=== PATIENT | male | born 1995 | race Caucasian/White ===

== ENCOUNTER 2018-08-07 16:53 | Emergency (ER) | payer OTHER ==
[2018-08-07] MEDS ORDERED: NS(*) 0.9% 1000 ML BAG 1,000 ML IV ONE (16:58)
[2018-08-07] MEDS ORDERED: ONDANSETRON 4 MG/2 ML VIAL IVP ONE (17:00)
[2018-08-07] MEDS ORDERED: KETOROLAC 30 MG/ML VIAL IVP ONE (17:00)
[2018-08-07] MEDS ORDERED: VITA1CAP50 PO (17:07)
[2018-08-07] MEDS ORDERED: IOPAMIDOL 76% 75 ML INFUS BTL 75 ML ONE (17:10)
--- NOTE | 2018-08-07 17:13 | ER Report ---
History and Physical Time Seen By MD: 17:07 Hx. of Stated Complaint: Pt. having RLQ pain with vomiting and diarrhea. Pt. sent from [facility] to rule out Appendicitis. HPI/ROS CHIEF COMPLAINT: Right lower quadrant abdominal pain, nausea, vomiting HISTORY OF PRESENT ILLNESS: Patient is a 22-year-old male here [facility] [employer] with complaints of right lower quadrant, periumbilical abdominal pain which started this morning and is associated decreased appetite, nausea, chills, subjective fever. Patient denies prior history of abdominal surgeries. Patient does complain of loose stools however denies hematuria, burning with urination, flank pain, shortness of breath, cough. Patient is afebrile, hemodynamically stable. REVIEW OF SYSTEMS: Constitutional: + subjective fever, + chills. Eyes: No discharge. ENT: No sore throat. Cardiovascular: No chest pain, no palpitations. Respiratory: No cough, no shortness of breath. Gastrointestinal: + right lower and periumbilical abdominal pain, + nausea and vomiting. Genitourinary: No hematuria. Musculoskeletal: No back pain. Skin: No rashes. Neurological: No headache. Allergies: Coded Allergies: No Known Drug Allergies (Unverified , 08/07/18) Home Meds Active Scripts Tramadol Hcl (TRAMADOL HCL) 50 Mg Tablet, 50 MG PO Q6H PRN for PAIN, #10 TAB 0 Refills Prov:ZULEIMA SUAREZ DO 08/07/18 Ondansetron (ZOFRAN ODT) 4 Mg Tab.rapdis, 4 MG PO Q6H PRN for NAUSEA/VOMITING, #20 TAB.LILLIANA 0 Refills Prov:ZULEIMA SUAREZ DO 08/07/18 Reported Medications Vitamin B Complex & Vit C No.3 (B COMPLEX WITH VITAMIN C) 1 Each Capsule, 1 EACH PO DAILY, CAPSULE 08/07/18 Constitutional Vital Sign - Last 24 Hours 08/07/18 08/07/18 08/07/18 08/07/18 16:59 16:59 17:03 17:08 Temp 98.7 Pulse 77 75 86 Resp 16 B/P (MAP) 139/82 (101) 139/82 Pulse Ox 95 95 95 O2 Delivery Room Air 08/07/18 08/07/18 08/07/18 08/07/18 17:13 17:18 17:22 17:23 Pulse 79 75 80 B/P (MAP) 126/86 (99) Pulse Ox 94 96 93 08/07/18 08/07/18 08/07/18 08/07/18 17:38 17:43 17:48 17:53 Pulse 70 63 76 77 Pulse Ox 93 93 94 93 08/07/18 08/07/18 17:58 18:00 Pulse 86 B/P (MAP) 124/67 (86) Pulse Ox 96 Physical Exam General Appearance: The patient is alert, has no immediate need for airway protection and no signs of toxicity. NAD Eyes: Pupils equal and round no pallor or injection. ENT, Mouth: Mucous membranes are moist. Respiratory: There are no retractions, lungs are clear to auscultation. Cardiovascular: Regular rate and rhythm. Gastrointestinal: Abdomen is soft and + tender in the periumbilical and RLQ distribution, no masses, bowel sounds normal. Neurological: No focal neuro deficits Skin: Warm and dry, no rashes. Musculoskeletal: Neck is supple non tender. Extremities are nontender, nonswollen and have full range of motion. DIFFERENTIAL DIAGNOSIS: After history and physical exam differential diagnosis was considered for abdominal pain including but not limited to appendicitis, cholecystitis, gastritis and urinary tract infection. Medical Decision Making Data Points Result Diagram: 08/07/18 1705 08/07/18 1705 Laboratory Hematology Test 08/07/18 17:05 08/07/18 18:25 Red Blood Count 6.58 M/uL (4.00-5.60) Mean Corpuscular Volume 82.4 fL (80.0-96.0) Mean Corpuscular Hemoglobin 29.1 pg (26.0-33.0) Mean Corpuscular Hemoglobin Concent 35.4 g/dL (32.0-36.0) Red Cell Distribution Width 13.0 % (11.5-14.5) Mean Platelet Volume 9.1 fL (7.2-11.1) Neutrophils (%) (Auto) 71.0 % (39.4-72.5) Lymphocytes (%) (Auto) 20.2 % (17.6-49.6) Monocytes (%) (Auto) 7.2 % (4.1-12.4) Eosinophils (%) (Auto) 1.0 % (0.4-6.7) Basophils (%) (Auto) 0.6 % (0.3-1.4) Nucleated RBC Relative Count (auto) 0.1 /100WBC Neutrophils # (Auto) 7.5 K/uL (2.0-7.4) Lymphocytes # (Auto) 2.1 K/uL (1.3-3.6) Monocytes # (Auto) 0.8 K/uL (0.3-1.0) Eosinophils # (Auto) 0.1 K/uL (0.0-0.5) Basophils # (Auto) 0.1 K/uL (0.0-0.1) Nucleated RBC Absolute Count (auto) 0.01 K/uL Sodium Level 143 mmol/L (137-145) Potassium Level 3.6 mmol/L (3.5-5.0) Chloride Level 102 mmol/L (98-107) Carbon Dioxide Level 25 mmol/L (22-30) Blood Urea Nitrogen 12 mg/dl (9-21) Creatinine 0.80 mg/dl (0.66-1.25) Glomerular Filtration Rate Calc > 60.0 Random Glucose 87 mg/dl (75-110) Calcium Level 9.6 mg/dl (8.4-10.2) Total Bilirubin 0.9 mg/dl (0.2-1.3) Aspartate Amino Transf (AST/SGOT) 26 U/L (0-35) Alanine Aminotransferase (ALT/SGPT) 39 U/L (0-56) Alkaline Phosphatase 62 U/L (0-126) C-Reactive Protein < 0.5 mg/dl (<1.0) Total Protein 8.7 g/dl (6.3-8.2) Albumin 4.9 g/dl (3.5-5.0) Lipase 99 U/L (23-300) Chemistry Test 08/07/18 17:05 08/07/18 18:25 White Blood Count 10.5 k/uL (4.5-11.0) Red Blood Count 6.58 M/uL (4.00-5.60) Hemoglobin 19.2 g/dL (14.0-18.0) Hematocrit 54.2 % (42.0-52.0) Mean Corpuscular Volume 82.4 fL (80.0-96.0) Mean Corpuscular Hemoglobin 29.1 pg (26.0-33.0) Mean Corpuscular Hemoglobin Concent 35.4 g/dL (32.0-36.0) Red Cell Distribution Width 13.0 % (11.5-14.5) Platelet Count 256 K/uL (150-450) Mean Platelet Volume 9.1 fL (7.2-11.1) Neutrophils (%) (Auto) 71.0 % (39.4-72.5) Lymphocytes (%) (Auto) 20.2 % (17.6-49.6) Monocytes (%) (Auto) 7.2 % (4.1-12.4) Eosinophils (%) (Auto) 1.0 % (0.4-6.7) Basophils (%) (Auto) 0.6 % (0.3-1.4) Nucleated RBC Relative Count (auto) 0.1 /100WBC Neutrophils # (Auto) 7.5 K/uL (2.0-7.4) Lymphocytes # (Auto) 2.1 K/uL (1.3-3.6) Monocytes # (Auto) 0.8 K/uL (0.3-1.0) Eosinophils # (Auto) 0.1 K/uL (0.0-0.5) Basophils # (Auto) 0.1 K/uL (0.0-0.1) Nucleated RBC Absolute Count (auto) 0.01 K/uL Glomerular Filtration Rate Calc > 60.0 Calcium Level 9.6 mg/dl (8.4-10.2) Total Bilirubin 0.9 mg/dl (0.2-1.3) Aspartate Amino Transf (AST/SGOT) 26 U/L (0-35) Alanine Aminotransferase (ALT/SGPT) 39 U/L (0-56) Alkaline Phosphatase 62 U/L (0-126) C-Reactive Protein < 0.5 mg/dl (<1.0) Total Protein 8.7 g/dl (6.3-8.2) Albumin 4.9 g/dl (3.5-5.0) Lipase 99 U/L (23-300) Urinalysis Test 08/07/18 18:25 EKG/Imaging Imaging COMPUTED TOMOGRAPHY OF THE Abdomen and Pelvis with CONTRAST INDICATION: Right lower quadrant pain x1 day. TECHNIQUE: Contiguous axial 3.[address] images were obtained through the abdomen and pelvis after 75 mL Isovue-370. Coronal and sagittal reformatted images were submitted. COMPARISON: None. FINDINGS: Lung bases: Clear Liver and hepatic vasculature: No focal liver lesion. Gallbladder and bile ducts: Normal Spleen: Normal Pancreas: Normal Adrenals: Normal Kidneys, ureters and bladder: Symmetric enhancement. No hydronephrosis or collecting system obstruction. Normal-appearing bladder. Retroperitoneum and aorta: Normal GI tract, mesentery and peritoneum: Normal appendix. No bowel obstruction. No free fluid or free air. No findings of diverticulitis. Prostate: Unremarkable Bones and soft tissues: No acute osseous abnormality. IMPRESSION: 1. Normal appendix. 2. The source of abdominal pain is not forthcoming. One of the following dose optimization techniques was utilized in the performance of this exam: Automated exposure control; adjustment of the mA and/or kV according to the patient's size; or use of an iterative reconstruction technique. Specific details can be referenced in the facility's radiology CT exam operational policy. ED Course/Re-evaluation ED Course Patient is a 22-year-old male here with complaints of periumbilical and right lower quadrant abdominal pain with associated nausea, chills, vomiting which st arted this morning. Patient was evaluated at [facility] where concern was raised for acute appendicitis prompting emergency department evaluation. Patient does have tenderness on exam of the right lower quadrant of the abdomen without rebound or guarding, fevers or hemodynamic instability. Patient was given IV fluids, Zofran, Toradol for symptom management. CT imaging of the abdomen and pelvis showed no acute intra-abdominal findings. Labs are unremarkable. Patient was given prescription for tramadol and Zofran for outpatient management of symptoms. Decision to Disposition Date: Aug 07, 2018 Decision to Disposition Time: 18:36 Depart Departure Latest Vital Signs Vital Signs Date Time Temp Pulse Resp B/P (MAP) Pulse Ox O2 Delivery O2 Flow Rate FiO2 08/07/18 18:00 124/67 (86) 08/07/18 17:58 86 96 08/07/18 16:59 98.7 16 Room Air Impression: Primary Impression: Abdominal pain Condition: Improved Disposition: HOME OR SELF-CARE New Scripts Tramadol Hcl (TRAMADOL HCL) 50 Mg Tablet 50 MG PO Q6H PRN for PAIN, #10 TAB 0 Refills Prov: ZULEIMA SUAREZ DO 10/25/18 Ondansetron (ZOFRAN ODT) 4 Mg Tab.rapdis 4 MG PO Q6H PRN for NAUSEA/VOMITING, #20 TAB.LILLIANA 0 Refills Prov: ZULEIMA SUAREZ DO 08/07/18 Patient Instructions: Abdominal Pain (ED) Additional Instructions: You may take 1 tablet of Zofran every 6-8 hours as needed for nausea and vomiting. You may take 1 tablet of tramadol every 6-8 hours as needed for pain control. Please follow-up with your family doctor in the next one week or return promptly if you develop fevers, worsening pain, inability to tolerate oral intake. ZULEIMA SUAREZ DO Aug 07, 2018 17:13
[2018-08-07 17:32] LABS: PLATELET COUNT, AUTOMATED 256 K/uL (150-450)
[2018-08-07] MEDS ORDERED: TRAM-420 PO (17:48)
[2018-08-07] MEDS ORDERED: ONDA4TAB PO (17:48)
--- NOTE | 2018-08-07 18:15 | RADIOLOGY IMAGING REPORT ---
FACILITY: [facility] PATIENT NAME: Corbin Ferreira : 1995 MR: [id number] V: [id number] EXAM DATE: [id number] ORDERING PHYSICIAN: ZULEIMA SUAREZ TECHNOLOGIST: Location: [facility] [place] Patient: Corbin Ferreira : 1995 Visit/Account:[id number] Date of Sevice: 08/07/2018 COMPUTED TOMOGRAPHY OF THE Abdomen and Pelvis with CONTRAST INDICATION: Right lower quadrant pain x1 day. TECHNIQUE: Contiguous axial 3.[address] images were obtained through the abdomen and pelvis after 75 m L Isovue-370. Coronal and sagittal reformatted images were submitted. COMPARISON: None. FINDINGS: Lung bases: Clear Liver and hepatic vasculature: No focal liver lesion. Gallbladder and bile ducts: Normal Spleen: Normal Pancreas: Normal Adrenals: Normal Kidneys, ureters and bladder: Symmetric enhancement. No hydronephrosis or collecting system obstruc tion. Normal-appearing bladder. Retroperitoneum and aorta: Normal GI tract, mesentery and peritoneum: Normal appendix. No bowel obstruction. No free fluid or free ai r. No findings of diverticulitis. Prostate: Unremarkable Bones and soft tissues: No acute osseous abnormality. IMPRESSION: 1. Normal appendix. 2. The source of abdominal pain is not forthcoming. One of the following dose optimization techniques was utilized in the performance of this exam: Autom ated exposure control; adjustment of the mA and/or kV according to the patient's size; or use of an i terative reconstruction technique. Specific details can be referenced in the facility's radiology C T exam operational policy. Report Dictated By: Joshua Cantu MD at 08/07/2018 5:45 PM Report E-Signed By: Joshua Cantu MD at 08/07/2018 6:12 PM [id number]
[2018-08-07 18:55] VITALS: BP 133/72
== END 2018-08-07 18:55 | disposition home or self-care (01) ==
LOC: ER 17:14
DX: R10.31 Right lower quadrant pain (principal)
CPT/HCPCS: 81001; 83690; 85025; 86140; 96361; 96374; 96375; 99284; J1885; J2405; J7030; Q9967; 74177; 82040; 82247; 82310; 82374; 82435; 82565; 82947; 84075; 84132; 84155; 84295; 84450; 84460; 84520